=== PATIENT | female | born 1995 | race Caucasian/White ===

== ENCOUNTER 2016-07-09 20:21 | Emergency (ER) | payer BC ==
[2016-07-10] MEDS ORDERED: SUMAtriptan TAB* 100 MG PO ONE (00:02)
--- NOTE | 2016-07-10 00:07 | ED ---
Influenza-Like Illness - HPI Summary HPI Summary: Patient presents with two weeks of fatigue, intermittent fevers, and her typical migraine. Her roommate has mono, so she was tested at [facility] when her symptoms originally appeared, and it was negative. She has treated her symptoms with Excedrin, ibuprofen and extra fluids. It is finals week at [employer], so her fatigue is worse and she just wanted to be retested for mono. She denies neck stiffness, fever today, N/V/D, cough or URI. - History of Current Complaint Chief Complaint: EDGeneral Time Seen by Provider: 07/09/16 23:46 Hx Obtained From: Patient Onset/Duration: Gradual Onset, Lasting Weeks, Still Present Severity: Moderate Associated Signs & Symptoms: Fever - intermittent Related Hx: Possible Flu/Infectious Exposure - mono - Allergy/Home Medications Allergies/Adverse Reactions: Allergies Allergy/AdvReac Type Severity Reaction Status Date / Time No Known Allergies Allergy Verified 07/09/16 20:28 PMH/Surg Hx/FS Hx/Imm Hx Previously Healthy: Yes Infectious Disease History: No Infectious Disease History: Denies: Traveled Outside the [place] in Last 30 Days - Family History Known Family History: Positive: None - Social History Occupation: Student Lives: Halfway - apartment Alcohol Use: Rare Substance Use Type: Reports: None Smoking Status (MU): Never Smoked Tobacco Review of Systems Positive: Fever - intermittent, Fatigue Negative: Photophobia, Blurred Vision Negative: Sore Throat, Ear Ache Negative: Shortness Of Breath, Cough Negative: Abdominal Pain Negative: Myalgia Negative: Bruising Positive: Headache. Negative: Weakness, Paresthesia, Numbness All Other Systems Reviewed And Are Negative: Yes Physical Exam Triage Information Reviewed: Yes Vital Signs On Initial Exam: Initial Vitals Temp Pulse Resp BP Pulse Ox 98.4 F 106 16 126/91 100 07/09/16 20:24 07/09/16 20:24 07/09/16 20:24 07/09/16 20:24 07/09/16 20:24 Vital Signs Reviewed: Yes Appearance: Positive: Well-Appearing, No Pain Distress, Well-Nourished Skin: Positive: Warm, Skin Color Reflects Adequate Perfusion, Dry, Soft Head/Face: Positive: Normal Head/Face Inspection Eyes: Positive: EOMI, BARBARA, Conjunctiva Clear ENT: Positive: Hearing grossly normal, Pharynx normal, TMs normal Neck: Positive: Supple, Nontender, Enlarged Nodes @ - bilateral cervical chain Respiratory/Lung Sounds: Positive: Clear to Auscultation, Breath Sounds Present Cardiovascular: Positive: Tachycardia Abdomen Description: Positive: Nontender, Soft. Negative: CVA Tenderness (R), CVA Tenderness (L) Bowel Sounds: Positive: Present Musculoskeletal: Negative: Edema Left, Edema Right Neurological: Positive: Sensory/Motor Intact, Alert, Oriented to Person Place, Time, NV Bundle Intact Distally, Normal Gait Psychiatric: Positive: Affect/Mood Appropriate AVPU Assessment: Alert Diagnostics - Vital Signs Vital Signs Temp Pulse Resp BP Pulse Ox 07/09/16 23:25 99.9 F 83 16 141/60 100 07/09/16 21:55 98.3 F 71 16 134/68 100 07/09/16 20:24 98.4 F 106 16 126/91 100 - Laboratory Result Diagrams: 07/10/16 00:48 07/10/16 00:48 Lab Statement: Any lab studies that have been ordered have been reviewed, and results considered in the medical decision making process. Flu Symptom Course/Dx - Diagnoses Differential Diagnosis/HQI/PQRI: Positive: Bronchitis, Influenza, Pneumonia, RSV , Upper Respiratory Infection Provider Diagnoses: Viral illness Discharge - Discharge Plan Condition: Stable Disposition: HOME Patient Education Materials: Viral Syndrome (ED) Forms: *Work Release Referrals: [facility] [Primary Care Provider] - Additional Instructions: Continue to treat your symptoms with rest, extra fluids, ibuprofen and/or Tylenol. Follow-up with [facility] as needed. Return to the emergency department if symptoms worsen.
[2016-07-10] MEDS ORDERED: Acetaminophen TAB* 325 MG PO ONE (00:29)
[2016-07-10 01:09] LABS: Hematocrit 45 % (35-47); Hemoglobin 14.9 g/dl (12.0-16.0); Mean Corpuscular HGB Conc 33 g/dl (31-36); Mean Corpuscular Hemoglobin 28 pg (27-31); Mean Corpuscular Volume 85 fL (80-97); Mean Platelet Volume 10 um3 (7.4-10.4); Red Cell Distribution Width 13 % (10.5-15); White Blood Count 7.6 10^3/ul (3.5-10.8)
[2016-07-10 01:25] LABS: Albumin 4.3 g/dL (3.2-5.2); BUN/Creatinine Ratio 14.3 (8-20); C Reactive Protein 2.23 mg/L (< 5.00); Calcium 9.5 mg/dL (8.6-10.3); EGFR African American 137.2 (>60); EGFR Non-African American 106.7 (>60); Potassium 3.9 mmol/L (3.5-5.0); Total Bilirubin 0.4 mg/dL (0.2-1.0); Total Protein 7.3 g/dL (6.4-8.9)
[2016-07-10 01:29] LABS: Mono Internal Control QC Line Present
[2016-07-10 01:30] LABS: Manual Entry Verification ROB0080
[2016-07-10 01:52] VITALS: BP 136/68
== END 2016-07-10 01:53 | disposition home or self-care (01) ==
LOC: ED 20:21
DX: B34.9 Viral infection, unspecified (principal); R51 Headache; R50.9 Fever, unspecified
CPT/HCPCS: 36415; 80053; 85025; 86140; 86308; 99283; A9270-GY

== ENCOUNTER 2017-07-12 13:01 | Emergency (ER) | payer BC ==
[2017-07-12] MEDS ORDERED: Loperamide CAP* 2 MG PO ONE (14:14)
[2017-07-12 14:36] VITALS: BP 111/85
--- NOTE | 2017-07-22 16:14 | UC ---
Headache HPI - HPI Summary HPI Summary: Patient is a 22-year-old female who presents to the ED with a request for prednisone refill. She states she is currently on 80 mg daily with a tapered dose of prednisone for her migraines. She left her prescription at home and has 2 days left here before she returns home. She is to be taking 80 today, 70 mg tomorrow and 70 mg but after that. She states the prednisone has improved her symptoms. She has been followed by a neurologist for her migraines. She is also endorsing diarrhea as a side effect from her prednisone and is requesting a antidiarrheal medication. She denies any infectious history, no blood in the stool malodorous or yellow or green color. Denies any other complaints or concerns at this time. - History Of Current Complaint Chief Complaint: EDPrescriptionNeeded Stated Complaint: MED REFILL Time Seen by Provider: 07/12/17 13:13 Hx Obtained From: Patient ?: No Onset/Duration: Sudden Onset Onset Of Symptoms: Resolved Initially Headache Was: Initial Pain Scale(0-10)= - 9 Currently Pain Is: Current Pain Scale(0-10)= - 1 Pain Intensity: 5 Pain Scale Used: 0-10 Numeric Timing: Constant Character: Throbbing Location of Headache: Diffuse Aggravating Factor(s): Nothing Allevating Factor(s): Nothing Associated Signs And Symptoms: Positive: Negative - Risk Factors SAH Risk Factors: Negative Meningitis Risk Factors: Negative Temporal Arteritis Risk Factors: Female, - Allergies/Home Medications Allergies/Adverse Reactions: Allergies Allergy/AdvReac Type Severity Reaction Status Date / Time No Known Allergies Allergy Verified 07/09/16 20:28 Home Medications: Home Medications Amphetamine MIXED SALT TAB* [Adderall TAB*] 20 mg PO DAILY 07/12/17 [History Confirmed 07/12/17] Multivitamins/Minerals TAB* [Theragran/minerals TAB*] 1 tab PO DAILY 07/12/17 [ History Confirmed 07/12/17] Omeprazole CAP* [Prilosec CAP* 20 MG] 40 mg PO DAILY 07/12/17 [History Confirmed 07/12/17] PMH/Surg Hx/FS Hx/Imm Hx Previously Healthy: Yes - Surgical History Surgical History: Unable to Obtain/Confirm - Family History Known Family History: Positive: None - Social History Occupation: Unemployed Lives: With Family Alcohol Use: None Alcohol Amount: 2/wk Substance Use Type: None Smoking Status (MU): Never Smoked Tobacco Review of Systems Constitutional: Negative Skin: Negative Respiratory: Negative Cardiovascular: Negative Gastrointestinal: Diarrhea Motor: Negative Neurovascular: Negative Neurological: Headache - 03/02 Psychological: Negative Is Patient Immunocompromised?: No All Other Systems Reviewed And Are Negative: Yes Physical Exam Triage Information Reviewed: Yes Appearance: Well-Appearing, Well-Nourished Vital Signs: Initial Vital Signs Temp 98.7 F 07/12/17 13:06 Pulse 107 07/12/17 13:06 Resp 20 07/12/17 13:06 BP 133/87 07/12/17 13:06 Pulse Ox 98 07/12/17 13:06 Vital Signs Reviewed: Yes Eye Exam: Normal Eyes: Positive: Conjunctiva Clear Respiratory Exam: Normal Respiratory: Positive: Chest non-tender, Lungs clear Musculoskeletal Exam: Normal Musculoskeletal: Positive: Strength Intact Neurological Exam: Normal Neurological: Positive: Alert Skin Exam: Normal Headache Course/Dx - Course Course Of Treatment: Patient is evaluated for her acute migraines. She is being seen by a neurologist. She is here for a medication refill. I have agreed to dispense 80 mg for today's dose, 70 mg for tomorrow's dose as well as 70 mg the following day. By that time she will return to her home and retrieve the rest of her medications. She will follow-up with her neurologist as planned. She is also given loperamide and instructions on use. - Differential Dx/Diagnosis Provider Diagnoses: Request for refill medication Discharge - Sign-Out/Discharge Documenting (check all that apply): Discharge/Admit/Transfer - Discharge Plan Condition: Stable Disposition: HOME Prescriptions: Loperamide CAP* [Imodium CAP*] 2 mg PO Q4H PRN #10 cap PRN Reason: Diarrhea predniSONE TAB* [Deltasone 10 MG TAB*] 30 mg PO DAILY #2 tab predniSONE TAB* [Deltasone 20 MG TAB*] 40 mg PO DAILY #4 tab Referrals: Angelique Ruiz [employer] [Primary Care Provider] - Additional Instructions: Take 80mg today Take 70mg tomorrow and Loperamide as needed for diarrhea - take 1 tab after each bout of diarrhea until resolved - Billing Disposition and Condition Condition: STABLE Disposition: HOME
== END 2017-07-12 14:34 | disposition home or self-care (01) ==
LOC: ED 13:01
DX: G43.909 Migraine, unspecified, not intractable, without status migrainosus (principal); Z76.0 Encounter for issue of repeat prescription; R19.7 Diarrhea, unspecified
CPT/HCPCS: 99282; A9270-GY